=== PATIENT | female | born 1955 | race American Indian/Alaskan Native ===

== ENCOUNTER 2019-01-07 12:29 | Emergency (ER) | payer MEDICAID, MEDICARE ==
--- NOTE | 2019-01-07 13:02 | EDM.PDOC ---
ED HPI GENERAL MEDICAL PROBLEM - General Chief Complaint: Diabetic Complaint Stated Complaint: LOW BLOOD SUGAR Time Seen by Provider: 01/07/19 12:45 Source of Information: Reports: Patient, Family History Limitations: Reports: No Limitations - History of Present Illness INITIAL COMMENTS - FREE TEXT/NARRATIVE: Delmis is a Type II DM on Lantus U100 and Novolog U100 each day. She took Lantus 70 U SC this am and became aware with noontime glucometer 48 mg%. She was not sxs with hypoglycemia sxs of lt headiness, weakness, or impaired concentration. She took some OJ and came to the ED. Upon arrival, her fingerstik BS 79 mg% and she remains asx. She has been med compliant with listed meds. - Related Data Allergies Allergy/AdvReac Type Severity Reaction Status Date / Time acetaminophen Allergy Cannot Verified 01/07/19 12:55 [From Darvocet-N] Remember Iodinated Contrast Media Allergy Cannot Verified 01/07/19 12:55 Remember propoxyphene Allergy Cannot Verified 01/07/19 12:55 [From Darvocet-N] Remember shellfish derived Allergy Cannot Verified 01/07/19 12:55 Remember sulfamethoxazole Allergy Cannot Verified 01/07/19 12:55 [From Bactrim] Remember trimethoprim [From Bactrim] Allergy Cannot Verified 01/07/19 12:55 Remember Past Medical History Endocrine/Metabolic History: Reports: Diabetes, Type II ED ROS GENERAL - Review of Systems Review Of Systems: Comprehensive ROS is negative, except as noted in HPI. ED EXAM, GENERAL - Physical Exam Exam: See Below Exam Limited By: No Limitations General Appearance: Alert, WD/WN, No Apparent Distress, Anxious Eye Exam: Bilateral Eye: EOMI, Normal Inspection, PERRL Ears: Normal External Exam Nose: Normal Inspection Throat/Mouth: Normal Inspection Head: Normocephalic Neck: Supple Respiratory/Chest: Lungs Clear Cardiovascular: Regular Rate, Rhythm Back Exam: Normal Inspection Extremities: Normal Inspection Psychiatric: Normal Affect, Anxious Skin Exam: Warm, Dry Lymphatic: No Adenopathy Course - Vital Signs Text/Narrative:: Mrs. Velazco remained stable at the ED. No meds were administered. Departure - Departure Time of Disposition: 13:02 Disposition: Home, Self-Care 01 Condition: Good Clinical Impression: Hypoglycemia - Discharge Information *PRESCRIPTION DRUG MONITORING PROGRAM REVIEWED*: Not Applicable *COPY OF PRESCRIPTION DRUG MONITORING REPORT IN PATIENT ARTURO: Not Applicable Referrals: Vidhya Torres PA-C [Primary Care Provider] - Forms: ED Department Discharge - Problem List & Annotations (1) Hypoglycemia SNOMED Code(s): 727157802 Code(s): E16.2 - HYPOGLYCEMIA, UNSPECIFIED Status: Acute Annotation/ Comment:: I suggested hourly monitoring for a few hours, then routine glucometer checks. No change in insulin therapy was suggested. - Problem List Review Problem List Initiated/Reviewed/Updated: Yes - Assessment/Plan Plan: Follow up with PCP if needed.
== END 2019-01-07 13:30 | disposition home or self-care (01) ==
LOC: FB.ED 12:29
DX: E11.649 Type 2 diabetes mellitus with hypoglycemia without coma (principal); Z88.2 Allergy status to sulfonamides; Z88.1 Allergy status to other antibiotic agents; Z91.041 Radiographic dye allergy status; Z88.5 Allergy status to narcotic agent; Z91.013 Allergy to seafood
CPT/HCPCS: 82962; 99282; 99283

== ENCOUNTER 2024-06-16 11:37 | Emergency (ER) | payer BC, MEDICARE ==
[2024-06-16] MEDS ORDERED: Sodium Chloride 0.9% 10 ML Syringe FLUSH PRN (12:00)
[2024-06-16 12:37] LABS: BASOPHILS ABSOLUTE AUTO 0.1 x10-3/uL (0.0-0.1); BASOPHILS PERCENT AUTO 0.7 % (0.2-1.5); BLOOD UREA NITROGEN,BUN 26 mg/dL (7-18); BUN/CREATININE RATIO 18.6 (9-20); CALCIUM 8.7 mg/dL (8.6-10.2); CARBON DIOXIDE,CO2 29 mmol/L (21-32); CHLORIDE,CL 92 mmol/L (100-110); CREATININE 1.4 mg/dL (0.55-1.02); EOSINOPHILS ABSOLUTE AUTO 0.2 x10-3/uL (0.0-0.8); ESTIMATED GFR 40 mL/min (>60); GLUCOSE RANDOM 68 mg/dL (80-116); HEMATOCRIT 36.8 % (34.2-48.2); HEMOGLOBIN 12.3 g/dL (11.4-15.5); LYMPHOCYTES ABSOLUTE AUTO 2.9 x10-3/uL (1.0-4.4); LYMPHOCYTES PERCENT AUTO 31.9 % (18.4-52.1); MEAN CORPUSCULAR HEMOGLOBIN 27.8 pg (23.9-33.9); MEAN CORPUSCULAR HGB CONC 33.5 g/dL (31.9-34.8); MEAN PLATELET VOLUME 7.8 fL (7.1-12.4); MONOCYTES ABSOLUTE AUTO 0.6 x10-3/uL (0.3-1.0); NEUTROPHILS ABSOLUTE AUTO 5.3 x10-3/uL (1.5-6.3); NEUTROPHILS PERCENT AUTO 58.4 % (30.8-76.2); PLATELET COUNT,PLT 287 x10(3)uL (151-488); POTASSIUM,K 3.9 mmol/L (3.5-5.3); RED BLOOD CELL COUNT 4.44 x10(6)uL (3.60-5.20); RED CELL DISTRIBUTION WIDTH 14.6 % (12.3-16.5); SODIUM,NA 129 mmol/L (135-145); WHITE BLOOD CELL COUNT,WBC 9.1 x10-3/uL (3.0-10.3)
[2024-06-16] MEDS: Sodium Chloride 0.9% 1,000 ML IV SCH (12:37)
[2024-06-16 12:43] LABS: A/G RATIO 0.9; ALANINE AMINOTRANSFERASE,ALT 24 U/L (12-36); ALBUMIN 3.2 g/dL (3.2-4.6); ALKALINE PHOSPHATASE 98 IU/L (56-112); ASPARTATE AMNIOTRANSFERASE,AST 23 IU/L (5-25); BILIRUBIN TOTAL 0.4 mg/dL (0.1-1.3); CREATINE KINASE,CK 23 IU/L (60-160); PROTEIN TOTAL,TP 6.7 g/dL (6.0-8.0)
[2024-06-16 12:52] LABS: TSH ULTRASENSITIVE 0.94 IU/mL (0.36-3.74)
[2024-06-16 12:53] LABS: ETHANOL BLOOD MEDICAL < 0.03 % (<0.03)
[2024-06-16] MEDS: Labetalol 20 MG/4 ML Syringe IVPUSH ONE (13:12)
[2024-06-16] MEDS ORDERED: Ciprofloxacin in D5W 400 MG in Premix Bag 1 BAG IV SCH (13:15)
[2024-06-16] MEDS: amLODIPine 5 MG Tab PO STA (13:45)
[2024-06-17 18:22] LABS: THYROXINE FREE 1.3 ng/dL (0.9-1.7)
== END 2024-06-16 15:30 | disposition home or self-care (01) ==
LOC: FB.ED 11:37
DX: E87.1 Hypo-osmolality and hyponatremia (principal); I10 Essential (primary) hypertension; E11.9 Type 2 diabetes mellitus without complications; Z88.8 Allergy status to other drugs, medicaments and biological substances
CPT/HCPCS: 70450; 71045; 80053; 80307; 82550; 84439; 84443; 84484; 85025; 93005; 96361; 96374; 99285; A9270; J1920; J7030